=== PATIENT | female | born 1955 | race Caucasian/White ===

== ENCOUNTER 2024-01-10 16:42 | Emergency (ER) | payer MEDICARE, SELFPAY ==
--- NOTE | ~2024-01-10 | CT_ITS ---
EXAMINATION: CT EXTREMITY WITHOUT CONTRAST, LEFT LOWER CLINICAL INFORMATION: Penetrating trauma COMPARISON: None available. TECHNIQUE: Computed axial tomographic sections with 3 or map sagittal and coronal images acquired at thin and thick sections, this is a noncontrast CT scan. This CT examination was performed using dose optimization techniques as appropriate, variously including the following: *Automated exposure control *Adjustment of mA and/or kV according to patient size (this includes techniques or standardized protocols for targeted exams where dose is matched to indication/reason for exam; i.e. extremities or head) *Use of iterative reconstruction technique DLP: 305 mGy-cm FINDINGS: Bones: The tibia and fibula are intact, adjacent joints knees, patella, distal femur, ankle and adjacent talus and calcaneus are intact. Joints: Mild degenerative osteoarthritic changes of the knee joints and ankle joints. No intra-articular fracture or injury. Soft tissue: There is soft tissue swelling/laceration along the anterior lateral aspect of the lower leg with associated subcutaneous swelling, possibly hematoma along the tract of the penetrating injury, no radiodense foreign objects however. The soft tissue opacity within the subcutaneous fat possibly hematoma 1.7 x 1.4 cm. There are air bubbles dissecting through the muscle plane probably sequela of the penetrating injury. No radiodense foreign objects identified. The CT scan done without contrast, cannot assess for possible vascular injury. There is however no evidence of large loculated the fluid collection. CT/CT lower leg RT wo IV con IMPRESSION: 1. Soft tissue swelling/laceration along the anterior lateral aspect of the lower leg with associated air bubbles dissecting through the muscle plane probably sequela of the penetrating injury. 2. No radiodense foreign objects identified. 3. The CT scan done without contrast, cannot assess for possible vascular injury. There is however no evidence of large loculated fluid collection. 4. No intra-articular fracture or injury. 5. Mild degenerative osteoarthritic changes. 6. The soft tissue opacity within the subcutaneous fat possibly hematoma 1.7 x 1.4 cm. Along the penetrating tract.
--- NOTE | ~2024-01-10 | XR_ITS ---
EXAMINATION: XR TIBIA AND FIBULA, RIGHT CLINICAL INFORMATION: Penetrating trauma COMPARISON: None available. TECHNIQUE: AP and lateral views of the right tibia and fibula were obtained. 3 views FINDINGS: The bones and soft tissues are normal. No fracture. No osseous lesions. XR/XR tibia fibula RT 2V IMPRESSION: No radiographic evidence of acute fracture or dislocation. No radiodense foreign body.
--- NOTE | 2024-01-10 16:49 | ED.LOWEXIN ---
HPI - Extremity Injury (Lower) General Chief Complaint: Wound/Laceration Stated Complaint: Fall/Inj to R leg Time Seen by Provider: 01/10/24 16:49 Source: patient and family Mode of arrival: wheelchair Limitations: no limitations History of Present Illness HPI Narrative: 69 y/o female presents to ER with puncture wound to right lower calf with tree branch. Injury occurred just prior to arrival. Patient states that she was doing yard work when she tripped over a mello and a branch that was rooted in the ground penetrated her right calf. She removed branch just prior to arrival and she reports it was at least 3 inches inside of her leg prior to pulling it out. She reports pain with movement of the foot and pain is primarily in the calf and back of her leg. Reports last tetanus to be few months ago. No active bleeding on arrival. She cannot walk on the right lower extremity MD complaint: leg injury Onset (ago): minute(s) Type of Injury: puncture wound Place: home Severity: severe Severity scale (1-10): 10 Relieving factors: cold therapy and immobilization Exacerbating factors: weight bearing, movement and palpation Context: other Associated symptoms: unable to bear weight Other symptoms: nausea/vomiting Related Data Previous Rx's ?Medication ?Instructions ?Recorded amoxicillin 875 mg-potassium 1 tab PO BID #20 tabs 01/10/24 clavulanate 125 mg tablet oxycodone 5 mg tablet 5 mg PO Q6H PRN severe pain (scale 01/10/24 score 7-10) #10 tabs Allergies Allergy/AdvReac Type Severity Reaction Status Date / Time No Known Allergies Allergy Verified 01/10/24 17:09 [No Known Allergies*] Review of Systems Review of Systems: Yes all other systems are reviewed and are negative [facility] Social History Social History Advance Directives: No Advance Directives Information Provided: No Physical Exam Vital Signs: Vital Signs: Last Vital Signs Pulse 94 01/10/24 17:08 Resp 18 01/10/24 17:08 BP 131/46 L 01/10/24 17:08 Pulse Ox 98 01/10/24 17:08 O2 Del Method Room Air 01/10/24 17:08 BMI result Body Mass Index 24.0 Appearance: Alert. Oriented X3. in pain, pale Head: normocephalic, atraumatic. Eyes: Pupils equal, round and reactive to light. Neck: Normal inspection. Neck supple. CVS: Normal heart rate and rhythm. Pulses normal. Respiratory: No respiratory distress. Breath sounds normal. Abdomen: Soft and nontender. Skin: Skin warm and dry. Normal skin color. Normal skin turgor. No rashes. Extremities: No lower extremity edema. No joint swelling. 1.5 cm puncture wound to lateral right lower leg with visible adipose tissue. Not actively bleeding. calf is tender to palpation. no palpable crepitus. pain w dorsiflexion and plantarflexion of the foot. foot is warm, NV intact distal to the wound Neuro/psych: Oriented X 3. Nonfocal Medications Administered Discontinued Medications Generic Name Dose Route Start Last Admin Trade Name Freq PRN Reason Stop Dose Admin Acetaminophen 975 mg 01/10/24 16:46 01/10/24 17:09 Acetaminophen 325 Mg Tablet PO 01/10/24 16:47 975 mg ONCE ONE Administration Amoxicillin/Clavulanate Potassium 875 mg 01/10/24 16:46 01/10/24 17:06 Amoxicillin/Potassium Clav 875 Mg Tablet PO 01/10/24 16:47 875 mg ONCE ONE Administration Lidocaine HCl 30 ml 01/10/24 17:13 01/10/24 17:49 Lidocaine Hcl 1 % 10 Ml Vial INFILTRATI 01/10/24 17:14 30 ml ONCE ONE Administration Oxycodone HCl 5 mg 01/10/24 16:46 01/10/24 17:09 Oxycodone Hcl Immed Release 5 Mg Tablet PO 01/10/24 16:47 5 mg ONCE ONE Administration Oxycodone HCl 5 mg 01/10/24 19:20 01/10/24 19:43 Oxycodone Hcl Immed Release 5 Mg Tablet PO 01/10/24 19:21 5 mg ONCE ONE Administration Medical Decision Making Medical Decision Making MDM Narrative: 69 y/o female presents to ER with penetrating wound to right lower calf with tree branch. Tetanus up to date, patient reports recent booster within the past few months. Wound was irrigated with saline upon arrival. Ordered xray of the tibia and fibula to evaluate depth of injury. No bony involvement. CT scan done for further evaluation of the wound showing some air c/w penetrating injury and small hematoma. No active bleeding on exam. NV Intact distally. Wound was cleansed with copious amounts of saline. 3 absorbable sutures were used in addition to 2 simple interrupted sutures and 1 horizontal suture for edge approximation, done loosely with the concern for wound contamination and infection patient will be discharged home with augmentin, oxycodone, surgery follow up strict wound care and return precautions were discussed with the patient and at the bedside stable for d/c home with close outpatient follow up Differential Diagnosis Differential Diagnoses: The differential diagnosis associated with the presentation includes penetrating wound, open tib/fib fracture, gastrocnemius tear, hematoma, vascular injury Admission/Observation Consideration of admission/observation: Escalation of care including admission/observation considered Independent Interpretation I performed an independent interpretation of an: Plain X-Ray and CT Scan Interpretation: xr without acute fracture Ct without bony involvement, small foci of air in the LE c/w injury, agree w/ radiology read Radiology Impression Discussion of test interpretation with radiology: I have reviewed the radiologist's reading. Radiologist Impression: XR/XR tibia fibula RT 2V IMPRESSION: No radiographic evidence of acute fracture or dislocation. No radiodense foreign body. Independent Historian Clinical information obtained from an independent historian. History obtained from or confirmed by: Spouse Prescription Management I considered prescription management with: Pain Medication and Antibiotic Procedures Laceration Laceration 1: Site: lower extremity Side (If applicable): right Size (cm): 2 Description: irregular and contaminated Depth: involves muscle layer Local Anesthetic: lidocaine 1% Amount of anesthesia used (mL): 8 Pre-repair: wound explored, irrigated extensively and wound margins revised Skin layer closed with: nylon Size (cm): 3-0 Number of sutures: 3 Technique: simple, interrupted and horizontal mattress Subcutaneous layer closed with: chromic gut Size: 4-0 Number of sutures: 3 Discharge Plan Discharge Clinical Impression: Penetrating wound of lower extremity Hematoma of lower extremity Qualifiers: Encounter type: initial encounter Laterality: right Qualified Code(s): S80.11XA - Contusion of right lower leg, initial encounter Patient Disposition: Home, Self-Care Instructions: Puncture Wound (DC) Additional Instructions: Imaging today did not show any broken bones or bone involvement 3 outer stitches & 3 absorbable stitches were used to close your wound today You will need your stitches out in 10 days. See you doctor for this or come back to the ER and we will remove them. Change the dressing daily. Do not get wet for 7 days, after that you can briefly wash with soap and water then pat dry. Keep wound clean and covered. Elevate your leg whenever possible. You can bear weight as tolerated, if too much pain use crutches or walker. If you develop signs of infection including increased pain, swelling, redness or drainage of pus come back to the ER for further evaluation. Take the prescribed antibiotics as directed, complete the entire course and do not miss any doses follow-up with general surgery for evaluation & monitoring of the wound. call for an appointment If you develop new or worsening symptoms call 911 or come back to the ER for further evaluation. Prescriptions: New amoxicillin-pot clavulanate 875-125 mg tablet 1 tab PO BID Qty: 20 0RF oxycodone 5 mg tablet 5 mg PO Q6H PRN (Reason: severe pain (scale score 7-10)) Qty: 10 0RF Rx Instructions: Partial Fill upon patient request. Referrals: [facility] [Provider Group] ( Penetrating wound to right lower leg) Print Language: Occitan
[2024-01-10] MEDS: Amoxicillin/Potassium Clav 875 MG TABLET PO (17:06)
[2024-01-10 17:08] VITALS: BP 131/46; PULSE 94; RESP 18; O2SAT 98; BMI 24.0
[2024-01-10] MEDS: Acetaminophen 325 MG TABLET 975 MG PO (17:09)
[2024-01-10] MEDS: oxyCODONE HCl Immed Release 5 MG TABLET PO ×2 (17:09→19:43)
[2024-01-10] MEDS: Lidocaine HCl 1 % 10 ML VIAL 30 ML INFILTRATI (17:49)
--- NOTE | 2024-01-10 20:45 | PC.NURSE ---
pt not discharged per order as bp right arm 85/34 then 66/31 on left arm when attempted to dc. reported was nausea, appeared a little pale. denies dizziness. stephanie extension work director notified. ordered to do manual
[2024-01-10 20:58] VITALS: BP 96/50
[2024-01-10 20:59] VITALS: BP 90/52
--- NOTE | 2024-01-10 21:05 | PC.NURSE ---
manual bp 96/50s and 90/52. stephanie unpaid intern notified. ordered to give pt something to eat/drink and re-eval
--- NOTE | 2024-01-10 21:10 | PC.NURSE ---
report given to Ritika RN- notified this RN that pt's BP was too low to discharge and to hold off on d/c patient. ritika MELENDEZ notified by this RN that she gave crackers and juice and that the BP should be re-evaluated in approx 30 min from shift change, and then re-evaluate and notify provider of new blood pressure. ritika RN states aware of this plan. pt is in room and calm in bed as this RN leaving her shift
[2024-01-23 20:45] VITALS: BP 85/34
[2024-01-23 20:47] VITALS: BP 66/31
== END 2024-01-10 22:29 | disposition home or self-care (01) ==
PROVIDERS: Emergency Provider Emergency Medicine; PCP Physician Assistant
DX: S81.831A Puncture wound without foreign body, right lower leg, initial encounter (principal); S80.11XA Contusion of right lower leg, initial encounter; W26.8XXA Contact with other sharp object(s), not elsewhere classified, initial encounter; Y93.H2 Activity, gardening and landscaping; Y92.89 Other specified places as the place of occurrence of the external cause; Y99.9 Unspecified external cause status; R11.0 Nausea; R23.1 Pallor
CPT/HCPCS: 12001; 73590; 73700; 99282; 99283; 99284

== ENCOUNTER 2024-01-12 17:00 | Emergency (ER) | payer MEDICARE, SELFPAY ==
--- NOTE | ~2024-01-12 | US_ITS ---
EXAMINATION: US VENOUS ULTRASOUND WITH DOPPLER LOWER EXTREMITY, RIGHT CLINICAL INFORMATION: Swelling, pain COMPARISON: None available. TECHNIQUE: Ultrasound of the deep veins is performed from the hip to the calf with compression sonography and color and pulse Doppler assessment. Spectral analysis with color-flow imaging is performed. FINDINGS: There is normal venous compression and respiratory variation and augmented flow. The visualized common femoral vein, superficial femoral vein, profunda femoral vein, popliteal vein, and the trifurcation region shows no evidence of deep venous thrombosis. If the patient's symptoms persist, followup ultrasound in 5 days 7 days might be of value to exclude proximal propagation from a non-visualized calf vein. US/US venous duplex LE RT IMPRESSION: No DVT demonstrated in the right lower extremity.
[2024-01-12 17:16] VITALS: BP 108/56; PULSE 88; RESP 18; TEMP 36.5; O2SAT 99; BMI 25.4
--- NOTE | 2024-01-12 17:21 | ED_ITS ---
HPI - Extremity Injury (Lower) General Chief Complaint: Extremity Injury, Lower Stated Complaint: seen t-2 for punct. wound, infection? Time Seen by Provider: 01/12/24 18:12 Source: patient Mode of arrival: ambulatory History of Present Illness HPI Narrative: 69-year-old female who had a penetrating wound injury to the distal aspect of the right lower extremity 2 days ago now presents with pain within the calf and some mild redness to the anterior tibia but has continued with the antibiotics and denies any fevers or chills. Related Data Previous Rx's ?Medication ?Instructions ?Recorded amoxicillin 875 mg-potassium 1 tab PO BID #20 tabs 01/10/24 clavulanate 125 mg tablet oxycodone 5 mg tablet 5 mg PO Q6H PRN severe pain (scale 01/10/24 score 7-10) #10 tabs Allergies Allergy/AdvReac Type Severity Reaction Status Date / Time No Known Allergies Allergy Verified 01/12/24 17:20 [No Known Allergies*] Review of Systems 2 Review of Systems: Pertinent positives and negatives as stated in HPI [facility] Past Medical History Source: nursing notes reviewed Social History Social History Advance Directives: No Advance Directives Information Provided: No Physical Exam 2 Vital Signs: Vital Signs: Last Vital Signs Temp 97.2 F 01/12/24 18:53 Pulse 84 01/12/24 18:53 Resp 18 01/12/24 18:53 BP 109/55 L 01/12/24 18:53 Pulse Ox 95 01/12/24 18:53 O2 Del Method Room Air 01/12/24 18:53 BMI result Body Mass Index 25.4 VITAL SIGNS: Reviewed. GENERAL: Well developed, well nourished, in no acute distress. HEAD: Normocephalic/atraumatic EYES: PERRLA, EOMI LUNGS: Normal breath sounds. No adventitious sounds or accessory muscle use. SpO2<95> CARDIOVASCULAR: Regular rate and rhythm without noted murmurs ABDOMEN: Soft, non-tender, non-distended with bowel sounds. MUSCULOSKELETAL: No tenderness, deformities, or effusions noted on gross inspection. EXTREMITIES: No cyanosis, clubbing or edema. RIGHT LOWER EXTREMITY: There is trace redness to the anterior aspect of the tibia, Homans is negative, distal sensation and pulses are intact, there is mild swelling along the ankle region, the wound appears to be well approximated without significant drainage, there is no identification of crepitus there are no vesicles/blisters noted SKIN: Inspection of the skin reveals no rashes NEUROLOGIC: Alert and oriented x 4. Strength and sensation to light touch were grossly intact x 4. Course Course Course Narrative: This is a Rapid Medical Examination (RME) in triage, full HPI, ROS, assessment and plan per primary provider in the Main ED. 69 yo female seen here 01/09 after a penetrating wound to her right anterior lower leg when a tree branch impaled her leg presents back to the ER for redness and swelling of the leg. Has been on augmentin. mildly erythematous anterior portion of the RLE, marked in triage. no drainage from the wound. Plan: labs, u/s LE r/o DVT Medical Decision Making Medical Decision Making [facility] Narrative: 69-year-old female with history and clinical presentation consistent with expected pain distribution and character given the nature of her recent injury, I suspect that she has not been wearing the Mansoor wrap as a compression source, possibility of overlying infection but feel that this is unlikely given clinical findings and the fact that she is taken her oral antibiotics as directed and has been less than 48 hours. I reviewed all investigations and there is no leukocytosis, there is a normocytic anemia and a thrombocytopenia without comparison lab work. Chemistry indices do not demonstrating SHARRON or electrolyte derangements and CRP is elevated but this is to be expected given the injury that patient sustained. Ultrasound does not demonstrate DVT, all results and findings discussed with the patient at bedside as well as symptoms and features that she should immediately return to the emergency room for. Patient has follow-up with the surgical team on 01/18. Differential Diagnosis Differential Diagnoses: The differential diagnosis associated with the presentation includes Please see the discussion above Admission/Observation Consideration of admission/observation: Escalation of care including admission/observation considered Please see the discussion above Lab Data [facility] Lab Attestation statement: I reviewed the patient's lab results. Please see the discussion above 01/12/24 17:27 01/12/24 17:27 Labs: Lab Results 01/12/24 Range/Units 17:27 WBC 5.4 (4.8-10.8) X10*3/uL RBC 3.70 L (4.20-5.50) X10*6/uL Hgb 11.4 L (12.0-16.0) g/dl Hct 33.7 L (37.0-47.0) % MCV 91.1 (80.0-98.0) fL MCH 30.8 (27.0-33.0) pg MCHC 33.8 (31.0-35.0) g/dl RDW 12.7 (11.0-16.0) % Plt Count 156 L (160-400) X10*3/uL MPV 10.3 (9.4-12.3) fL Immature Gran % (Auto) 0.4 (0.0-0.4) % Neut % (Auto) 76.3 H (45-73) % Lymph % (Auto) 15.7 L (20-40) % Mcleod % (Auto) 6.5 (2-11) % Eos % (Auto) 0.9 (0-4) % Baso % (Auto) 0.2 (0-2) % Lymph # (Auto) 0.9 L (1.2-4.9) X10*3/uL Mcleod # (Auto) 0.4 (0.1-1.2) X10*3/uL Eos # (Auto) 0.1 (0.0-0.4) X10*3/uL Baso # (Auto) 0.0 (0.0-0.2) X10*3/uL Abs Immat Gran (auto) 0.02 (0.00-0.03) X10*3/uL Absolute Neuts (auto) 4.1 (2.0-8.3) x10*3/uL Absolute Nucleated RBC 0.000 (0.0-0.012) X10*3/uL Nucleated RBC % (auto) 0.0 (0.0-0.2) /100WBC ESR 29 H (0-20) MM/HR Sodium 144 (135-145) mmol/L Potassium 4.5 (3.3-5.1) mmol/L Chloride 108 (96-108) mmol/L Carbon Dioxide 30 H (22-29) mmol/L Anion Gap 11 L (12-20) BUN 13 (9-16) mg/dL Creatinine 0.75 (0.5-1.4) mg/dL Estim Creat Clear Calc 73.6 Estimated GFR > 60 Random Glucose 122 H (60-115) mg/dL Calcium 9.6 (8.4-10.2) mg/dL C-Reactive Protein 7.48 H (< or = 0.50) mg/dL Radiology Impression Discussion of test interpretation with radiology: I have reviewed the radiologist's reading. Radiologist Impression: Please see the discussion above External Record Review External record reviewed: Outpatient record, Prior outpatient labs and Prior outpatient radiology Critical Care Time Critical Care Time Critical Care Time: Yes Total Critical Care Time: 30 Attestation: I personally attest to this time spent taking care of the patient. Discharge Plan Discharge Clinical Impression: Leg pain, right Patient Disposition: Home, Self-Care Instructions: Leg Pain (ED) Additional Instructions: 1. Resume all home medications as prescribed. 2. You may cleanse the wound with soap and water, blot dry, apply antibiotic ointment and then the dressing on top of that with the Mansoor wrap. Ensure that the Mansoor wrap is snug and that it is applied in a direction from your ankle up to your knee as this will minimize swelling in the foot. 3. If you notice any significant worsening of redness, any blisters, any purplish coloring of skin or feeling like it is bubble wrap you need to return to the emergency room immediately. Prescriptions: No Action amoxicillin-pot clavulanate 875-125 mg tablet 1 tab PO BID Qty: 20 0RF oxycodone 5 mg tablet 5 mg PO Q6H PRN (Reason: severe pain (scale score 7-10)) Qty: 10 0RF Rx Instructions: Partial Fill upon patient request. Referrals: Jenny Orlando PA [Primary Care Provider] - Print Language: Khmer
[2024-01-12 17:34] LABS: MANUAL DIFF FLAG NO
[2024-01-12 17:41] LABS: Basophils Percent Auto 0.2 % (0-2); Eosinophils Absolute Auto 0.1 X10*3/uL (0.0-0.4); Eosinophils Percent Auto 0.9 % (0-4); Hematocrit 33.7 % (37.0-47.0); Hemoglobin 11.4 g/dl (12.0-16.0); Imm Gran Abs Auto 0.02 X10*3/uL (0.00-0.03); Imm Gran Pct Auto 0.4 % (0.0-0.4); Lymphocytes Absolute Auto 0.9 X10*3/uL (1.2-4.9); Lymphocytes Percent Auto 15.7 % (20-40); Mean Corpuscular HGB Conc 33.8 g/dl (31.0-35.0); Mean Corpuscular Hemoglobin 30.8 pg (27.0-33.0); Mean Corpuscular Volume 91.1 fL (80.0-98.0); Mean Platelet Volume 10.3 fL (9.4-12.3); Monocytes Absolute Auto 0.4 X10*3/uL (0.1-1.2); Monocytes Percent Auto 6.5 % (2-11); Neutrophils Absolute Auto 4.1 x10*3/uL (2.0-8.3); Neutrophils Percent Auto 76.3 % (45-73); Platelet Count 156 X10*3/uL (160-400); Red Cell Distribution Width 12.7 % (11.0-16.0); White Blood Count 5.4 X10*3/uL (4.8-10.8)
[2024-01-12 17:56] LABS: Anion Gap 11 (12-20); Blood Urea Nitrogen 13 mg/dL (9-16); C Reactive Protein 7.48 mg/dL (< or = 0.50); Calcium 9.6 mg/dL (8.4-10.2); Carbon Dioxide 30 mmol/L (22-29); Chloride 108 mmol/L (96-108); Creatinine Clr Calc Pharmacy 73.6; Estimated Glomerular Filt Rate > 60; Glucose Random 122 mg/dL (60-115); Potassium 4.5 mmol/L (3.3-5.1); Sodium 144 mmol/L (135-145)
[2024-01-12 18:53] VITALS: BP 109/55; PULSE 84; RESP 18; TEMP 36.2; O2SAT 95
[2024-01-12 18:56] LABS: Erythrocyte Sedimentation Rate 29 MM/HR (0-20)
[2024-01-12 19:27] VITALS: BP 109/55; PULSE 84; RESP 18; TEMP 36.2; O2SAT 95
== END 2024-01-12 19:30 | disposition home or self-care (01) ==
PROVIDERS: Physician Assistant; Emergency Provider Student in an Organized Health Care Education/Training Program; PCP Physician Assistant
DX: M79.604 Pain in right leg (principal); R60.0 Localized edema; Z79.899 Other long term (current) drug therapy
CPT/HCPCS: 36415; 80048; 85025; 85652; 86140; 93971; 99283; 99284

== ENCOUNTER 2024-01-19 09:37 | Outpatient (AMB) | payer MEDICARE, SELFPAY ==
--- NOTE | 2024-01-19 09:41 | A.OFFVIS_ITS ---
Intake Vital Signs 01/19/24 09:47 Height 5 ft 6 in Weight 157 lb 3.033 oz BMI 25.4 Intake Visit Reasons: puncture wound, ER ffup, suture removal Intake Note: This patient presents for [facility] ER follow-up for puncture wound, ER ffup, suture removal. Patient c/o; reports red ring around wound. Telephone Clerk Telegraph Office Required: No Accompanied by: Self / Same As Patient Allergies No Known Allergies [No Known Allergies*] Allergy (Verified 01/19/24 09:48) Medication List - Last Reconciled 01/19/24 by Roly Mathis MD amoxicillin-pot clavulanate 875-125 mg 1 tab PO BID oxycodone 5 mg PO Q6H PRN HPI puncture wound, ER ffup, suture removal HPI Details 69-year-old female sent by the ER for fo llow-up for a puncture wound on the right lower leg. She had a large tree branch puncture her right leg last 01/10/2024. She says that part of the tree branch was inside her leg and she had to pull this out completely. She went to the ER and the wound was irrigated and partly closed with sutures. She was given oral antibiotics. She denies any significant complaints at this time although says that there is some redness around the open wound. Denies any obvious drainage. [facility] Medical History (Updated 01/19/24 @ 10:00 by Roly Mathis MD) Open wound Surgical History No pertinent past surgical history Family History Other Family history unknown Social History Alcohol intake: never Patient Tobacco Use Status: Never used Tobacco Review of Systems Const Denies chills and Denies fever(s) Card Denies chest pain, Denies dyspnea and Denies dyspnea on exertion Resp Denies cough, Denies dyspnea and Denies dyspnea on exertion GI Denies hematochezia and Denies change in bowel habits Denies hematuria Musc Denies back pain and Denies limited range of motion Neuro Denies focal weakness and Denies convulsions Psych Denies depression and Denies mood swings Physical Exam Vital Signs: BMI result Body Mass Index 25.4 Const General: comfortable and no acute distress Orientation/consciousness: patient oriented x3 Neck Neck: Yes no lymphadenopathy Resp Effort & Inspection: normal respiratory effort Cardio Rhythm: regular rhythm GI Palpation (GI): Soft to palpation, nontender and no guarding Neuro General: patient oriented x3 Extrem Other: Right leg with an open wound, about 3 cm in diameter, clean, [address] adjacent to this, some mild redness surrounding the open wound, no pus Assessment & Plan Assessment & Plan (1) Open wound: Code(s): T14.8XXA - Other injury of unspecified body region, initial encounter Plan: She has an open wound on the right leg as described above. She had some sutures next to this. I removed all her sutures. I bluntly debrided the surface of the open wound with gauze. I applied dry dressings. I told her that this seems to be granulating well and I anticipate this to heal eventually by secondary intention. I did On good wound care. I will see her again in the office in about 2-3 weeks for a wound check. I did tell her that if she has concerns with the wound, she can come back to the office earlier than that. Coding Level of Care Code New Pt Level 3 (34921) Diagnoses Open wound T14.8XXA
[2024-01-19 09:47] VITALS: BMI 25.4
== END 2024-01-19 10:02 | disposition home or self-care (01) ==
PROVIDERS: PCP Physician Assistant; Visit Provider Surgery
DX: T14.8XXA Other injury of unspecified body region, initial encounter (principal)
CPT/HCPCS: 99203

== ENCOUNTER → 2024-01-19 09:37 | Outpatient (BNVA) | payer MEDICARE, SELFPAY | PROVIDERS: PCP Physician Assistant; Visit Provider Surgery | DX: Z48.02 Encounter for removal of sutures (principal); S81.831A Puncture wound without foreign body, right lower leg, initial encounter; W20.8XXA Other cause of strike by thrown, projected or falling object, initial encounter; Y93.9 Activity, unspecified; Y92.9 Unspecified place or not applicable; Y99.9 Unspecified external cause status | CPT/HCPCS: 99202 ==